=== PATIENT | male | born 1965 | race Caucasian/White ===

== ENCOUNTER → 2016-08-20 | Outpatient (CLI) | payer OTHER ==
[~2016-08-20] MED LIST: AMLODIPINE BESYL5 MG PO; CATAPRES0.1 M1 PO; CLARITIN10 M3 PO; EXPECTORAN100 MG/51 PO; FLOMAX0.4 M1 PO; LASIX PO; LASIX20 MG; LEVAQUIN250 MG PO; LOPRESSOR PO; METOPROLOL SUCC50 MG PO; MYFORTIC180 MG PO; NEXIUM PO; OMEPRAZOLE40 M1 PO; PARICALCITOL1 MCG; PERCOCET10 PO; PERCOCET5/325 PO; PHOSLO667 MG PO; PRAVACHOL; PREDNISONE PO; PREDNISONE1 MG; PREDNISONE10 MG PO; RAPAMUNE1 MG PO; RENVELA800 MG PO; SENSIPAR60 MG; TAMIFLU75 M1 PO; TESSALON200 MG PO; ZITHROMAX PO; ZOFRAN ODT4 MG/UDTAB PO
[2016-08-20 08:44] LABS: MEAN CELL VOLUME 87.8 FL (83-96); MEAN CORPUSCULAR HEMOGLOBIN 27.8 PG (28-34); MEAN CORPUSCULAR HGB CONC 31.7 g/dL (30-36); RED BLOOD COUNT 4.67 X10e (3.90-5.60); RED CELL DISTRIBUTION WIDTH 17.2 % (11.0-15.5); WHITE BLOOD COUNT 8.4 X10e3 (4.0-10.5)
[2016-08-20 09:11] LABS: ALBUMIN SERUM 3.9 g/dL (3.5-5.0); BILIRUBIN,TOTAL 0.6 mg/dL (0.2-2.0); BUN/CREATININE RATIO 17.5; CALCIUM SERUM 10.3 mg/dL (8.4-10.2); CREATININE SERUM 3.2 mg/dL (0.6-1.4); GLOM FILT RATE Estimated 21.7 mL/min (>60); PHOSPHOROUS 4.3 mg/dL (2.5-4.6); POTASSIUM 4.8 mmol/L (3.5-5.1); PROTEIN TOTAL SERUM 6.8 g/dL (6.0-8.3); URIC ACID 10.6 mg/dL (2.6-7.2)
[2016-08-20 09:30] LABS: URINE APPEARANCE CLEAR; URINE BILIRUBIN NEG (NEG); URINE BLOOD NEG (NEG); URINE COLOR YELLOW; URINE GLUCOSE NEG (NORM); URINE KETONE NEG (NEG); URINE LEUKOCYTE ESTERASE NEG (NEG); URINE NITRATE NEG (NEG); URINE PH 5.5 (5-8); URINE PROTEIN 1+ (NEG); URINE SPECIFIC GRAVITY 1.015 (1.003-1.035); URINE UROBILINOGEN 0.2 MG/DL (NORM)
[2016-08-20 09:50] LABS: MICRO INDICATED? YES
[2016-08-20 09:53] LABS: URINE SOURCE CLEAN CATCH
[2016-08-20 09:54] LABS: URINE BACTERIA NEG (NEG); URINE GRANULAR CAST 0-2 /[HPF]; URINE HYALINE CAST 0-2 /[HPF]; URINE RBC 0-2 /[HPF] (0-2); URINE SQUAMOUS EPITHELIAL CELL FEW /[HPF]; URINE WBC 0-2 /[HPF] (0-5)
[2016-08-23 05:10] LABS: CALCIUM (PTHINTACT) 12.2 mg/dL (8.6-10.3)
== END | disposition home or self-care (01) ==
LOC: SLAB 08:15
PROVIDERS: Internal Medicine Nephrology
DX: E87.5 Hyperkalemia (principal); N18.9 Chronic kidney disease, unspecified; D63.1 Anemia in chronic kidney disease; Z94.0 Kidney transplant status
CPT/HCPCS: 36415; 80053; 80061; 80195; 81003; 82310; 83970; 84100; 84550; 85027; 87086

== ENCOUNTER → 2016-10-21 | Outpatient (CLI) | payer SELFPAY ==
[2016-10-21 09:18] LABS: HEMATOCRIT 41.3 % (38.0-50.0); HEMOGLOBIN 13.2 gm/dL (13.0-16.0); MEAN CELL VOLUME 88.8 FL (83-96); MEAN CORPUSCULAR HEMOGLOBIN 28.5 PG (28-34); MEAN PLATELET VOLUME 8.1 FL (6.5-11.5); RED BLOOD COUNT 4.65 X10e (3.90-5.60); RED CELL DISTRIBUTION WIDTH 15.8 % (11.0-15.5); WHITE BLOOD COUNT 9.1 X10e3 (4.0-10.5)
[2016-10-21 09:24] LABS: URINE APPEARANCE CLEAR; URINE BILIRUBIN NEG (NEG); URINE BLOOD TRACE-LYSED (NEG); URINE COLOR YELLOW; URINE GLUCOSE NEG (NORM); URINE KETONE NEG (NEG); URINE LEUKOCYTE ESTERASE NEG (NEG); URINE NITRATE NEG (NEG); URINE PH 5.5 (5-8); URINE PROTEIN 2+ (NEG); URINE UROBILINOGEN 0.2 MG/DL (NORM)
[2016-10-21 09:26] LABS: MICRO INDICATED? YES
[2016-10-21 09:41] LABS: ALBUMIN SERUM 3.7 g/dL (3.5-5.0); BILIRUBIN,TOTAL 0.4 mg/dL (0.2-2.0); BUN/CREATININE RATIO 17.5; CALCIUM SERUM 8.9 mg/dL (8.4-10.2); CREATININE SERUM 2.8 mg/dL (0.6-1.4); GLOM FILT RATE Estimated 24.6 mL/min (>60); PHOSPHOROUS 3.1 mg/dL (2.5-4.6); POTASSIUM 4.7 mmol/L (3.5-5.1); PROTEIN TOTAL SERUM 6.3 g/dL (6.0-8.3)
[2016-10-21 09:42] LABS: URINE BACTERIA NEG (NEG); URINE GRANULAR CAST 0-2 /[HPF]; URINE HYALINE CAST 0-2 /[HPF]; URINE RBC 0-2 /[HPF] (0-2); URINE WBC 0-2 /[HPF] (0-5)
[2016-10-24 16:39] LABS: CALCIUM (PTHINTACT) 10.1 mg/dL (8.6-10.3)
== END | disposition home or self-care (01) ==
LOC: SLAB 08:24
PROVIDERS: Internal Medicine Nephrology
DX: E87.5 Hyperkalemia (principal); D63.1 Anemia in chronic kidney disease; Z94.0 Kidney transplant status
CPT/HCPCS: 36415; 80053; 80061; 80195; 81003; 82310; 83970; 84100; 84550; 85027; 87086

== ENCOUNTER → 2016-12-04 | Outpatient (CLI) | payer OTHER ==
[2016-12-04 10:42] LABS: URINE APPEARANCE CLEAR; URINE BILIRUBIN NEG (NEG); URINE BLOOD NEG (NEG); URINE COLOR YELLOW; URINE GLUCOSE NEG (NORM); URINE KETONE NEG (NEG); URINE LEUKOCYTE ESTERASE NEG (NEG); URINE NITRATE NEG (NEG); URINE PH 5.5 (5-8); URINE PROTEIN 1+ (NEG); URINE UROBILINOGEN 0.2 MG/DL (NORM)
[2016-12-04 10:43] LABS: MICRO INDICATED? YES
[2016-12-04 10:44] LABS: HEMATOCRIT 43.7 % (38.0-50.0); MEAN CELL VOLUME 87.1 FL (83-96); MEAN CORPUSCULAR HGB CONC 32.1 g/dL (30-36); MEAN PLATELET VOLUME 9.3 FL (6.5-11.5); RED BLOOD COUNT 5.02 X10e (3.90-5.60); RED CELL DISTRIBUTION WIDTH 15.5 % (11.0-15.5); WHITE BLOOD COUNT 8.1 X10e3 (4.0-10.5)
[2016-12-04 10:45] LABS: URINE BACTERIA NEG (NEG); URINE HYALINE CAST 0-2 /[HPF]; URINE MUCUS PRESENT; URINE RBC 0-2 /[HPF] (0-2); URINE WBC 0-2 /[HPF] (0-5); URINE WHITE BLOOD CELL CAST 0-2 /[HPF]
[2016-12-04 11:00] LABS: ALBUMIN SERUM 3.6 g/dL (3.5-5.0); BILIRUBIN,TOTAL 0.4 mg/dL (0.2-2.0); BUN/CREATININE RATIO 22.3; CALCIUM SERUM 9.5 mg/dL (8.4-10.2); CREATININE SERUM 2.6 mg/dL (0.6-1.4); POTASSIUM 5.4 mmol/L (3.5-5.1); PROTEIN TOTAL SERUM 6.5 g/dL (6.0-8.3); URIC ACID 8.3 mg/dL (2.6-7.2)
== END | disposition home or self-care (01) ==
LOC: SLAB 09:18
PROVIDERS: Internal Medicine Nephrology
DX: E87.5 Hyperkalemia (principal); N18.9 Chronic kidney disease, unspecified; D63.1 Anemia in chronic kidney disease; Z94.0 Kidney transplant status
CPT/HCPCS: 36415; 80053; 80195; 81003; 84550; 85027; 87086